=== PATIENT | male | born 1955 | race Caucasian/White ===

== ENCOUNTER 2018-08-20 06:10 | Day surgery (SDC) | payer OTHER ==
[~2018-08-20] VITALS: Ht 161.3 cm; Wt 77.1 kg
[2018-08-20] MEDS ORDERED: LACTATED RINGERS 1,000 ML IV SCH (06:15)
[2018-08-20] MEDS ORDERED: CEFOXITIN SODIUM 2 G in DEXT 5% WATER 100 ML IV SCH (06:15)
[2018-08-20] MEDS ORDERED: MIDAZOLAM HCL 2 MG/2 ML VIAL ONE (06:48)
[2018-08-20] MEDS ORDERED: PROPOFOL 200MG/20ML VIAL IV ONE (06:48)
[2018-08-20] MEDS ORDERED: FENTANYL CITRATE/PF 50MCG/ML 5ML VIAL ONE (06:48)
[2018-08-20] MEDS ORDERED: ROCURONIUM BROMIDE 10MG/ML VIAL 5ML IV ONE (06:48)
[2018-08-20] MEDS ORDERED: BUPIVACAINE HCL/PF 0.5% (5MG/ML) 10ML ONE ×2 (06:52→06:55)
[2018-08-20] MEDS ORDERED: SKIN ADHESIVE 0.7 GM EA TOP ONE ×2 (06:52→09:21)
[2018-08-20] MEDS ORDERED: LIDOCAINE HCL 1% 20ML VIAL (Pyxis) INJ ONE ×2 (06:52→09:02)
[2018-08-20] MEDS ORDERED: BACITRACIN 50,000 UNITS/VIAL ONE (06:57)
[2018-08-20] MEDS ORDERED: NORMAL SALINE 0.9% 10 ML SYR ONE (06:57)
[2018-08-20] MEDS ORDERED: CEFAZOLIN SODIUM 1000MG/VIAL ONE (07:48)
[2018-08-20] MEDS ORDERED: BUPIVACAINE HCL 0.5% (5MG/ML) 50ML ONE (09:03)
[2018-08-20] MEDS ORDERED: ONDANSETRON HCL 4MG/2ML INJ IV PRN (10:00)
[2018-08-20] MEDS ORDERED: FENTANYL CITRATE/PF 50MCG/ML 2ML VIAL IV PRN (10:00)
[2018-08-20] MEDS ORDERED: HYDROMORPHONE HCL/PF 2MG/ML CPJ IV PRN (10:00)
[2018-08-20] MEDS ORDERED: MEPERIDINE HCL/PF 25MG/ML CPJ IV PRN (10:00)
[2018-08-20] MEDS ORDERED: ESMOLOL HCL 10MG/ML 10ML VIAL IV ONE (11:27)
[2018-08-20] MEDS ORDERED: NEOSTIGMINE METHYLSULFATE 1MG/ML 10 ML VIAL ONE (11:30)
[2018-08-20] MEDS ORDERED: GLYCOPYRROLATE 0.2 MG/ML 2ML VIAL ONE (11:30)
[2018-08-20] MEDS ORDERED: KETOROLAC 30MG/ML VIAL ONE ×2 (11:44→12:17)
== END 2018-08-20 11:40 | disposition home or self-care (01) ==
LOC: OR 06:10
PROVIDERS: ATTEND Specialist
DX: K40.20 Bilateral inguinal hernia, without obstruction or gangrene, not specified as recurrent (principal); F17.200 Nicotine dependence, unspecified, uncomplicated
CPT/HCPCS: 49505; 88304; C1781; G0168; J0690; J1885; J2250; J2704; J3010; J3490; J0694; J2710; J7060